=== PATIENT | female | born 1970 | race Caucasian/White ===

== ENCOUNTER 2017-09-02 11:41 | Emergency (ER) | payer SELFPAY ==
[~2017-09-02] VITALS: Ht 160 cm; Wt 78.7 kg
[2017-09-02] MEDS ORDERED: PROMETHAZINE IM 25 MG/ML VIAL IM ONE ×2 (12:00→13:30)
[2017-09-02] MEDS ORDERED: LORazepam 2 MG/ML VIAL IV ONE (12:00)
[2017-09-02] MEDS ORDERED: methylPREDNISolone SOD SUCC PF 125 MG/2 ML VIAL. IV ONE (12:00)
[2017-09-02] MEDS ORDERED: IV NORMAL SALINE 1,000ML 1,000 ML IV ONE (12:00)
--- NOTE | 2017-09-02 12:02 | PHYS DOC ---
Adult General Chief Complaint Chief Complaint: SHORTNESS OF BREATH HPI HPI Patient is a 47 YO F WITH HX OF LUPUS FIBROMYALGIA REPROTED PE BACK IN FEBRUARY 2017 ON PLAQUENIL LYRICA LEFLUNOMIDE HX OF ANXIETY P/W MULTIPLE SYMPTOMS B/L HAND AND LEG TINGLING, SOB described as feeling like her heart is really pounding palpitation she says that she is quite anxious but she states seems to get more short of breath when she exerts herself. She said she was worried that her PE came back because he shortness of breath was much worse tonight's ago today she is just having increased symptoms really feeling her heart pounding she knows that she is anxious but she is also having some chest tightness as well. Addition she has had 4 episodes of vomiting mostly small amount feeling very nauseous and addition she is having significant numbness of lower extremities and hands as well. She says last time she had the spectrum of symptoms really was just a lupus flare. She said that, without myself or nursing staff helping her at all she said "last time I got 125 of Solu-Medrol AND 50 of Phenergan". pt has had prior thoughts of suciide but no active plan at this time. Review of Systems Review of Systems Constitutional: Patient states that she gets a fever every single night at 9: 30. That has not changed recently Eyes: Denies change in visual acuity, redness, or eye pain [] HENT: Denies nasal congestion or sore throat [] Respiratory: pos sob Cardiovascular: No additional information not addressed in HPI [] GI: Denies abdominal pain, : Denies dysuria or hematuria [] All other systems were reviewed and found to be within normal limits, except as documented in this note. Physical Exam Physical Exam Constitutional: Well developed, well nourished, no acute distress, non-toxic appearance. [] HENT: Normocephalic, atraumatic, bilateral external ears normal, oropharynx moist, no oral exudates, nose normal. [] Eyes: PERRLA, EOMI, conjunctiva normal, no discharge. [] Neck: Normal range of motion, no tenderness, supple, no stridor. [] Cardiovascular:Heart rate regular rhythm, no murmur [] Lungs & Thorax: Bilateral breath sounds clear to auscultation [] Abdomen: Bowel sounds normal, soft, no tenderness, no masses, no pulsatile masses. [] Skin: Warm, dry, no erythema, no rash. [] Back: No tenderness, no CVA tenderness. [] Extremities: No tenderness, no cyanosis, no clubbing, ROM intact, no edema. [] Neurologic: Alert and oriented X 3, normal motor function, DECREASED DISTAL sensory function, no focal deficits noted. [] Psychologic: Affect normal, judgement normal, mood DEPRESSED. EKG EKG EKG shows a normal sinus rhythm with a rate of 83 there is a right bundle branch block pattern no ischemia no ST elevation.[] Radiology/Procedures Radiology/Procedures [] Impressions: Chest x-ray was negative acute Course & Med Decision Making Course & Med Decision Making Pertinent Labs and Imaging studies reviewed. (See chart for details) []47-year-old female with history of anxiety lupus and fibromyalgia who is presenting with multiple spectrum of symptoms to include palpitations shortness of breath extremity numbness overall clinical picture is that of significant anxiety however she does have a history of pulmonary embolism in the past. will get basic labs, treat symptoms ativan solumedrol and phenergan and go from [facility]. get ddimer ekg/trop, cxr, labs and ressess Final ER assessment and plan ER workup was essentially negative no signs of pneumonia d-dimer was negative troponin was negative patient had persistent nausea despite multiple doses of antiemetics She did appear more comfortable however she was no longer hyperventilating she did appear to be resting comfortably on my reassessment. She does have a long- standing history of depression she did report to staff and myself depressions at least since last October when she had to stop working she says that due to her pain and disability she temp sometimes wishes she was not alive however she does not have a specific plan about committing suicide. She is able to contract for safety with me she says if she goes home she will be safe. She is at bedside with mother and father live with her and mother is with her 24 7 and can vouch for her safety plan as well. She was advised to come back anytime should she ever feel suicidal actively ATIVAN, phenergan for symptoms Because she says she feels like the symptoms have been similar to lupus flare in the past and she usually responds well to prednisone we have agreed on a prednisone burst for the next several days patient has follow-up with her silo painter next Tuesday. Dragon Disclaimer Dragon Disclaimer This electronic medical record was generated, in whole or in part, using a voice recognition dictation system. Departure Departure: Impression: Primary Impression: Anxiety Disposition: HOME, SELF-CARE Condition: STABLE Referrals: PCP,UNKNOWN (PCP) Scripts Prednisone (PREDNISONE) 20 Mg Tablet 20 MG PO UD, #11 TAB TWO TABS PO DAILY FOR THREE DAYS, THEN ONE TAB PO DAILY FOR THREE DAYS THEN ONE HALF TAB PO DAILY FOR THREE DAYS. Prov: MANOJ ELAINE MD 09/02/17 Lorazepam (ATIVAN) 1 Mg Tablet 1 MG PO TID PRN for ANXIETY / AGITATION, #15 TAB Prov: MANOJ ELAINE MD 09/02/17 Promethazine Hcl (PROMETHAZINE HCL) 50 Mg Tablet 50 MG PO TID PRN for VOMITING, #20 TAB Prov: MANOJ ELAINE MD 09/02/17 MANOJ ELAINE MD Sep 02, 2017 12:01
[2017-09-02 12:24] LABS: BASO # 0.1 x10^3/uL (0.0-0.2); BASO % 1 % (0-3); EOS # 0.1 x10^3/uL (0.0-0.7); EOS % 2 % (0-3); HEMATOCRIT 44.1 % (36.0-47.0); HEMOGLOBIN 15.1 g/dL (12.0-15.5); LYMPH # 2.4 x10^3/uL (1.0-4.8); LYMPH % 33 % (24-48); MEAN CORPUSCULAR HEMOGLOBIN 30 pg (25-35); MEAN CORPUSCULAR HGB CONC 34 g/dL (31-37); MEAN CORPUSCULAR VOLUME 86 fL (79-100); MONO # 0.5 x10^3/uL (0.0-1.1); MONO % 8 % (0-9); NEUT # 4.1 x10^3uL (1.8-7.7); NEUT % 56 % (31-73); PLATELET COUNT 143 x10^3/uL (140-400); RED BLOOD COUNT 5.14 x10^6/uL (3.50-5.40); RED CELL DISTRIBUTION WIDTH 13.4 % (11.5-14.5); WHITE BLOOD COUNT 7.2 x10^3/uL (4.0-11.0)
[2017-09-02 12:38] LABS: ALBUMIN 3.5 g/dL (3.4-5.0); CALCIUM 8.5 mg/dL (8.5-10.1); CREATININE 0.9 mg/dL (0.6-1.0); GFR 67.1; MAGNESIUM 2.2 mg/dL (1.8-2.4); POTASSIUM 3.8 mmol/L (3.5-5.1); TOTAL BILIRUBIN 0.3 mg/dL (0.2-1.0); TOTAL PROTEIN 7.1 g/dL (6.4-8.2)
--- NOTE | 2017-09-02 13:09 | RAD ---
AP chest, 09/02/2017: HISTORY: Shortness of breath with fever The heart size and pulmonary vascularity are normal. No pulmonary infiltrate is seen. There is no evidence of pleural fluid. IMPRESSION: No acute cardiopulmonary abnormality is detected. Electronically signed by: Bar Noyola MD (09/02/2017 1:06 PM) [facility]
[2017-09-02 14:51] LABS: BILIRUBIN,URINE NEG (NEG); CLARITY,URINE CLEAR; COLOR,URINE YELLOW; GLUCOSE,URINE NEG (NEG)
[2017-09-02 14:52] LABS: BACTERIA,URINE 0 /HPF (0-FEW); NITRITE,URINE NEG (NEG); RBC,URINE 0 /HPF (0-2); SQUAMOUS EPITHELIAL CELL,UR MOD /LPF; UROBILINOGEN,URINE 0.2 mg/dL (0.2 mg/dL)
[2017-09-02] MEDS ORDERED: PROM50TA4 PO (15:05)
[2017-09-02] MEDS ORDERED: PRED20TA PO (15:05)
[2017-09-02] MEDS ORDERED: LORA-254 PO (15:05)
[2017-09-02 15:28] VITALS: BP 141/82
--- NOTE | 2017-09-02 16:19 | EKG ---
[address] [address] Test Date: 2017-09-02 Test Time: 12:00:21 Pat Name: ODALYS STARKEY Department: Room: Gender: F Wardrobe Supervisor: SABAS : 1970 Requested By: MANOJ ELAINE Order Number: [id number] Reading MD: Measurements Intervals [place] Rate: 83 P: 34 AK: 140 QRS: -17 QRSD: 84 T: 48 QT: 378 QTc: 445 Interpretive Statements SINUS RHYTHM LEFTWARD AXIS INCOMPLETE RIGHT BUNDLE BRANCH BLOCK NO SPECIFIC ECG ABNORMALITIES RI6.01 No previous ECG available for comparison
== END 2017-09-02 15:28 | disposition home or self-care (01) ==
LOC: ER 11:41
DX: F41.9 Anxiety disorder, unspecified (principal); R11.2 Nausea with vomiting, unspecified; M79.7 Fibromyalgia; F32.9 Major depressive disorder, single episode, unspecified; Z86.711 Personal history of pulmonary embolism
CPT/HCPCS: 36415; 71045; 80053; 81001; 83690; 83735; 84484; 84702; 85025; 85379; 87086; 93005; 96361; 96372; 96374; 96375; 99285; J2060; J2550; J2930; J7030

== ENCOUNTER 2018-03-09 21:05 | Inpatient (IN) | payer SELFPAY ==
[~2018-03-09] VITALS: Ht 160 cm; Wt 81.6 kg
[~2018-03-09 21:05] MED LIST: LORA-254 PO; PRED20TA PO; PROM50TA4 PO
--- NOTE | 2018-03-09 21:07 | ED.ADGEN ---
Past History Past Medical History: Anxiety, Fibromyalgia, Migraines, Other Past Surgical History: Appendectomy, Cholecystectomy, Hysterectomy, Oophorectomy Alcohol Use: Rarely Drug Use: None Adult General Chief Complaint Chief Complaint ".. My stomach is hurting the last two days....".. "I just moved back into the area.. about a month ago... "I be been having this chronic diarrhea...". " I am to see a GI specialist... ".. I do have Lupus and have been on 10 mg Prednisone daily to control it...".. 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 Patient has known history history of Lupus, anxiety, fibromyalgia, migraines, GERD and irritable bowel syndrome. Patient reports has been a number years since her last colonoscopy. Patient has had recent increase volume and frequency of stools past month. Reportedly has had a negative C. difficile check. Patient rises her abdomen pain primary in right upper quadrant tonight. This location of pain has been increasing in the last 2 days. Nothing she does seems to help. Patient denies any recent travel, specific ill contacts or bad food. Patient reports immunosuppression secondary to lupus and steroid use. Review of Systems Review of Systems Constitutional: Hx of fever or chills [] Eyes: Denies change in visual acuity, redness, or eye pain [] HENT: Denies nasal congestion or sore throat [] Respiratory: Denies cough or shortness of breath [] Cardiovascular: No additional information not addressed in HPI [] GI: Complaints of abdominal pain, nausea, and persistent diarrhea. . Denies vomiting, . : Denies dysuria or hematuria [] Musculoskeletal: Denies back pain or joint pain [] Integument: Denies rash or skin lesions [] Neurologic: Denies headache, focal weakness or sensory changes [] Endocrine: Denies polyuria or polydipsia [] All other systems were reviewed and found to be within normal limits, except as documented in this note. Family History Family History Noncontributory Current Medications Current Medications Current Medications Medications (Trade) Dose Ordered Sig/Nick Start Time Stop Time Status Last Admin Dose Admin Diphenhydramine HCl (Benadryl) 50 mg 1X ONCE 03/10/18 00:45 03/10/18 00:46 DC 03/10/18 01:29 50 MG Famotidine (Pepcid Vial) 20 mg 1X ONCE 03/09/18 22:00 03/09/18 22:01 DC 03/09/18 22:03 20 MG Info (Do NOT chart on this entry -- for MONITORING) 1 each PRN DAILY PRN 03/10/18 01:00 03/12/18 00:59 Iohexol (Omnipaque 240 Mg/ml) 30 ml 1X ONCE 03/10/18 01:00 03/10/18 01:01 DC 03/10/18 02:27 30 ML Iohexol (Omnipaque 300 Mg/ml) 75 ml 1X ONCE 03/10/18 00:45 03/10/18 00:48 DC 03/10/18 02:27 75 ML Lactated Ringer's 1,000 ml @ 1,000 mls/hr Q1H 03/09/18 21:28 03/09/18 22:27 DC 03/09/18 22:03 1,000 MLS/HR Morphine Sulfate (Morphine 10mg Syringe) 10 mg 1X ONCE 03/10/18 01:30 03/10/18 01:31 DC 03/10/18 01:30 10 MG Ondansetron HCl (Zofran) 8 mg 1X ONCE 03/10/18 03:00 03/10/18 03:01 DC 03/10/18 02:55 8 MG Allergies Allergies Allergies Coded Allergies Type Severity Reaction Last Updated Verified hydrocodone Allergy Intermediate Unknown 03/09/18 Yes varicella virus vaccine live Allergy Intermediate Unknown 03/09/18 Yes Penicillins Allergy Unknown 09/02/17 Yes Sulfa (Sulfonamide Antibiotics) Allergy Unknown 09/02/17 Yes Physical Exam Physical Exam Constitutional: Moderately to markedly acute distress, non-toxic appearance. [] HENT: Normocephalic, atraumatic, bilateral external ears normal, oropharynx moist, no oral exudates, nose normal. [] Eyes: PERRLA, EOMI, conjunctiva normal, no discharge. [] Neck: Normal range of motion, no tenderness, supple, no stridor. [] Cardiovascular:Heart rate regular rhythm, no murmur [] Lungs & Thorax: Bilateral breath sounds equal apex auscultation [] Abdomen: Bowel sounds hyperactive, soft, generalized tenderness, no masses, no pulsatile masses. [] Right upper quadrant localization on pain on rebound. No true psoas sign. Old surgery scars. Obese Skin: Warm, dry, no erythema, no rash. [] Back: No tenderness, no CVA tenderness. [] Extremities: No tenderness, no cyanosis, no clubbing, ROM intact, no edema. [] Neurologic: Alert and oriented X 3, normal motor function, normal sensory function, no focal deficits noted. [] Psychologic: Affect anxious, judgement normal, mood normal. [] Current Patient Data Vital Signs Vital Signs Date Time Temp Pulse Resp B/P (MAP) Pulse Ox O2 Delivery O2 Flow Rate FiO2 03/10/18 03:05 84 18 134/82 (99) 95 Room Air 03/09/18 21:05 98.0 Lab Results Laboratory Tests Test 03/09/18 21:35 03/09/18 22:55 White Blood Count 6.6 x10^3/uL (4.0-11.0) Red Blood Count 5.13 x10^6/uL (3.50-5.40) Hemoglobin 14.3 g/dL (12.0-15.5) Hematocrit 43.6 % (36.0-47.0) Mean Corpuscular Volume 85 fL (79-100) Mean Corpuscular Hemoglobin 28 pg (25-35) Mean Corpuscular Hemoglobin Concent 33 g/dL (31-37) Red Cell Distribution Width 13.7 % (11.5-14.5) Platelet Count 130 x10^3/uL (140-400) L Neutrophils (%) (Auto) 76 % (31-73) H Lymphocytes (%) (Auto) 17 % (24-48) L Monocytes (%) (Auto) 5 % (0-9) Eosinophils (%) (Auto) 1 % (0-3) Basophils (%) (Auto) 1 % (0-3) Neutrophils # (Auto) 5.0 x10^3uL (1.8-7.7) Lymphocytes # (Auto) 1.1 x10^3/uL (1.0-4.8) Monocytes # (Auto) 0.3 x10^3/uL (0.0-1.1) Eosinophils # (Auto) 0.1 x10^3/uL (0.0-0.7) Basophils # (Auto) 0.0 x10^3/uL (0.0-0.2) Erythrocyte Sedimentation Rate 8 (0-25) Prothrombin Time 9.7 SEC (9.4-11.4) Prothrombin Time INR 1.0 (0.9-1.1) PTT 25 SEC (23-33) Sodium Level 141 mmol/L (136-145) Potassium Level 3.4 mmol/L (3.5-5.1) L Chloride Level 106 mmol/L (98-107) Carbon Dioxide Level 24 mmol/L (21-32) Anion Gap 11 (6-14) Blood Urea Nitrogen 9 mg/dL (7-20) Creatinine 1.0 mg/dL (0.6-1.0) Estimated GFR (Cockcroft-Gault) 59.4 Glucose Level 140 mg/dL (70-99) H Calcium Level 8.4 mg/dL (8.5-10.1) L Total Bilirubin 0.4 mg/dL (0.2-1.0) Direct Bilirubin 0.1 mg/dL (0.0-0.2) Aspartate Amino Transferase (AST) 24 U/L (15-37) Alanine Aminotransferase (ALT) 34 U/L (14-59) Alkaline Phosphatase 146 U/L (46-116) H Creatine Kinase 34 U/L (26-192) Troponin I Quantitative < 0.017 ng/mL (0-0.055) Total Protein 6.9 g/dL (6.4-8.2) Albumin 3.4 g/dL (3.4-5.0) Lipase 168 U/L (73-393) Urine Collection Type Unknown Urine Color Yellow Urine Clarity Clear Urine pH 7.0 Urine Specific [place] 1.010 Urine Protein Neg (NEG-TRACE) Urine Glucose (UA) Neg mg/dL (NEG) Urine Ketones (Stick) Neg mg/dL (NEG) Urine Blood Neg (NEG) Urine Nitrite Neg (NEG) Urine Bilirubin Neg (NEG) Urine Urobilinogen Dipstick 0.2 mg/dL (0.2 mg/dL) Urine Leukocyte Esterase Neg (NEG) Urine RBC 0 /HPF (0-2) Urine WBC Occ /HPF (0-4) Urine Squamous Epithelial Cells Occ /LPF Urine Bacteria 0 /HPF (0-FEW) Urine Opiates Screen Neg (NEG) Urine Methadone Screen Neg (NEG) Urine Barbiturates Neg (NEG) Urine Phencyclidine Screen Neg (NEG) Urine Amphetamine/Methamphetamine Neg (NEG) Urine Benzodiazepines Screen Neg (NEG) Urine Cocaine Screen Neg (NEG) Urine Cannabinoids Screen Neg (NEG) Urine Ethyl Alcohol Neg (NEG) EKG EKG My interpretation EKG shows a sinus rhythm at 82 bpm. Some mild leftward axis and some nonspecific T-wave changes. But no findings acute STEMI with contralateral changes[] Radiology/Procedures Radiology/Procedures [] Impressions: I interpretation of acute abdomen film shows no acute cardiopulmonary findings on pulmonary portion of film. No free air in the diaphragm. Appears to have gas throughout the colon. Does have clips in right upper quadrant of abdomen film. Nonobstructive bowel gas pattern. CT of abd. shows. Colon wall thickening and multiple splenic small lesions. No free air appreciated. See formal report when available Course & Med Decision Making Course & Med Decision Making Pertinent Labs and Imaging studies reviewed. (See chart for details) Discussed options of treatment with patient patient requesting to be admitted here- initially patient aware that we do not offer GI services or consult for hospital admissions at this location. Patient also where we no longer do surgery at this location. Patient insists on admission here. Discussed presentation, testing and treatment plan with . Will admit for IV hydration and NPO status. Will start Antibiotics and give Solumedrol- due to hx of chronic steroid use and Lupus hx. [] Final Impression Final Impression 1. Abdomen Pain[] 2. Colitis 3. Lupus steroid dependent 4. History GERD 5. History of anxiety 6. History of fibromyalgia 7. History of chronic diarrhea Dragon Disclaimer Dragon Disclaimer This electronic medical record was generated, in whole or in part, using a voice recognition dictation system. SATINDER LIU MD Mar 09, 2018 21:07
[2018-03-09] MEDS ORDERED: IV RINGERS SOLUTION,LACTATED 1,000 ML IV SCH (21:28)
[2018-03-09 21:50] LABS: BASO % 1 % (0-3); EOS # 0.1 x10^3/uL (0.0-0.7); EOS % 1 % (0-3); HEMATOCRIT 43.6 % (36.0-47.0); HEMOGLOBIN 14.3 g/dL (12.0-15.5); LYMPH # 1.1 x10^3/uL (1.0-4.8); LYMPH % 17 % (24-48); MEAN CORPUSCULAR HEMOGLOBIN 28 pg (25-35); MEAN CORPUSCULAR HGB CONC 33 g/dL (31-37); MEAN CORPUSCULAR VOLUME 85 fL (79-100); MONO # 0.3 x10^3/uL (0.0-1.1); MONO % 5 % (0-9); NEUT % 76 % (31-73); PLATELET COUNT 130 x10^3/uL (140-400); RED BLOOD COUNT 5.13 x10^6/uL (3.50-5.40); RED CELL DISTRIBUTION WIDTH 13.7 % (11.5-14.5); WHITE BLOOD COUNT 6.6 x10^3/uL (4.0-11.0)
[2018-03-09] MEDS ORDERED: FAMOTIDINE 20 MG/2 ML VIAL IVP ONE (22:00)
[2018-03-09] MEDS ORDERED: ONDANSETRON PF 4 MG/2 ML VIAL. IV ONE (22:00)
[2018-03-09 22:06] LABS: ALBUMIN 3.4 g/dL (3.4-5.0); CALCIUM 8.4 mg/dL (8.5-10.1); DIRECT BILIRUBIN 0.1 mg/dL (0.0-0.2); GFR 59.4; POTASSIUM 3.4 mmol/L (3.5-5.1); TOTAL BILIRUBIN 0.4 mg/dL (0.2-1.0); TOTAL PROTEIN 6.9 g/dL (6.4-8.2)
--- NOTE | 2018-03-09 22:08 | RAD ---
ACUTE ABDOMEN SERIES History: Severe right sided abdomen pain, nausea, vomiting, diarrhea, fever Comparison: September 02, 2017 chest radiograph Findings: Single view of the chest and single supine and upright views of the abdomen are submitted. There is no infiltrate, pleural fluid, pneumothorax. There is no free air. There is a nonobstructive bowel gas pattern. There are likely phleboliths right pelvis. There has been cholecystectomy. Impression: 1. No acute abnormality is identified by radiographs. Electronically signed by: Keo Bledsoe MD (03/09/2018 10:04 PM) [facility]
[2018-03-09] MEDS ORDERED: MORPHINE SULFATE 10 MG/ML SYRINGE. SQ ONE (23:15)
[2018-03-09 23:21] LABS: BARBITURATES NEG (NEG); BENZODIAZEPINES NEG (NEG); CANNABINOIDS NEG (NEG); COCAINE NEG (NEG); METHADONE NEG (NEG); OPIATES NEG (NEG); PHENCYCLIDINE NEG (NEG)
[2018-03-09 23:22] LABS: BILIRUBIN,URINE NEG (NEG); CLARITY,URINE CLEAR; COLOR,URINE YELLOW; GLUCOSE,URINE NEG (NEG); NITRITE,URINE NEG (NEG); UROBILINOGEN,URINE 0.2 mg/dL (0.2 mg/dL)
[2018-03-09 23:23] LABS: AMPHETAMINE/METHAMPHETAMINE NEG (NEG); BACTERIA,URINE 0 /HPF (0-FEW); RBC,URINE 0 /HPF (0-2); SQUAMOUS EPITHELIAL CELL,UR OCC /LPF; WBC,URINE OCC /HPF (0-4)
[2018-03-10] MEDS ORDERED: IOHEXOL 300 MG/ML 75 ML VIAL. IV ONE (00:45)
[2018-03-10] MEDS ORDERED: diphenhydrAMINE 50 MG/ML VIAL IVP ONE ×2 (00:45→17:45)
[2018-03-10] MEDS ORDERED: CONTRAST GIVEN MC PRN (01:00)
[2018-03-10] MEDS ORDERED: IOHEXOL 240 MG/ML 50ML VIAL. PO ONE (01:00)
[2018-03-10] MEDS ORDERED: MORPHINE SULFATE 10 MG/ML SYRINGE. SQ ONE (01:30)
[2018-03-10] MEDS ORDERED: ONDANSETRON PF 4 MG/2 ML VIAL. IV ONE (03:00)
--- NOTE | 2018-03-10 03:32 | RAD ---
Examination: CT ABD PELV W/ORAL IV CONTRAST History: Omni 300 75cc: Abdomen pain, nausea, vomiting, fever x 2 days. Hx: Appendectomy, hysterectomy, cholecystectomy, oopherectomy Comparison/Correlation: None Findings: Axial images of the abdomen and pelvis were obtained following 72 cc Isovue 300 IV. Oral contrast was administered. Sagittal and coronal reformatted images were provided. Visualized lung bases are unremarkable. Cholecystectomy noted. Minimal central biliary prominence is evident presumably related to postoperative status. Adrenal glands are normal. Pancreas is unremarkable. Right renal interpolar region low-attenuation lesion which is too small to characterize probably represents a cyst. Left kidney is unremarkable. The spleen has multiple low-attenuation lesions within it. One of these at the splenic dome has central calcification. This lesion measures up to 3 cm in the axial plane. More inferiorly at the medial aspect of the spleen, there is a lesion which measures up to 2.6 cm diameter. At the inferior aspect of the spleen, there is a well-demarcated lobulated lesion measuring up to 4.7 cm x 4.4 cm. It is of fluid attenuation. Additional multiple smaller lesions are present within the spleen with similar density. No enlarged abdominal or pelvic lymph nodes. No bowel obstruction or extraluminal gas. Hysterectomy noted. Circumferential wall thickening of the proximal hemicolon is present. This may present to a lesser extent at the distal hemicolon. No surrounding stranding. Lucency involving the proximal right femur is present. Correlate with previous intervention. Impression: Subtle wall thickening of the colon. Findings raise question of mild colitis. No surrounding stranding. Multiple lesions involving the spleen. These probably represent hemangiomas. No enlarged lymph nodes. Correlate with previous exams assess stability. Consider further evaluation with MRI of the spleen without and with contrast for more complete characterization if stability of these findings are known. Electronically signed by: Blayne Dominguez MD (03/10/2018 3:28 AM) [facility]
[2018-03-10] MEDS ORDERED: ACETAMINOPHEN 325 MG TABLET PO PRN (04:30)
[2018-03-10] MEDS ORDERED: cefTRIAXone IV Push 1 GM VIAL. IVP ONE (05:00)
[2018-03-10] MEDS ORDERED: methylPREDNISolone SOD SUCC PF 125 MG/2 ML VIAL. IV ONE (05:00)
[2018-03-10] MEDS ORDERED: ONDANSETRON PF 4 MG/2 ML VIAL. IV PRN (05:00)
[2018-03-10 06:00] VITALS: BP 131/86
[2018-03-10] MEDS ORDERED: ESTR2TAB PO (06:27)
[2018-03-10] MEDS ORDERED: NAPR220T70 PO (06:27)
[2018-03-10] MEDS ORDERED: SUCR1TAB35 PO (06:27)
[2018-03-10] MEDS ORDERED: TOPI100T42 PO (06:27)
[2018-03-10] MEDS ORDERED: LEFL20TA15 PO (06:27)
[2018-03-10] MEDS ORDERED: BUSP15TA PO (06:27)
[2018-03-10] MEDS ORDERED: FLUO40CA2 PO (06:27)
[2018-03-10] MEDS ORDERED: PRED-220 PO (06:27)
[2018-03-10] MEDS ORDERED: HYDR200T71 PO (06:27)
[2018-03-10] MEDS ORDERED: OMEP40CA5 PO (06:27)
[2018-03-10] MEDS ORDERED: NAPROXEN 250 MG TABLET PO PRN (06:45)
[2018-03-10] MEDS: PROMETHAZINE 25 MG TABLET. PO PRN ×2 (07:15→20:40)
[2018-03-10] MEDS: SUCRALFATE 1 GM TABLET. PO SCH ×4 (08:07→20:26)
[2018-03-10] MEDS: POTASSIUM CL 40MEQ D5-0.45NACL 1,000 ML IV SCH ×2 (08:07→22:04)
[2018-03-10] MEDS: PANTOPRAZOLE 40 MG TABLET. PO SCH (08:07)
[2018-03-10] MEDS: busPIRone 15 MG TABLET. PO SCH ×2 (10:03→20:25)
[2018-03-10] MEDS: FLUoxetine HCL 20 MG CAPSULE PO SCH (10:03)
[2018-03-10] MEDS: ESTRADIOL 1 MG TABLET PO SCH (10:03)
[2018-03-10] MEDS: TOPIRAMATE 100 MG TABLET. PO SCH ×2 (10:03→20:26)
[2018-03-10] MEDS: HYDROXYCHLOROQUINE 200 MG TABLET PO SCH ×2 (10:04→20:25)
[2018-03-10 10:49] VITALS: BP 128/87
[2018-03-10] MEDS: HYDROmorphone PF 2 MG/ML VIAL IV PRN ×3 (12:41→20:41)
--- NOTE | 2018-03-10 14:04 | HP ---
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 She stated that her symptoms started since December with loose bowel movement. Normally, she has irritable bowel syndrome and her bowel sounds fluctuate between diarrhea and constipation. However, her symptoms has persistent diarrhea since December. For the last 2 days, the pain in the right upper quadrant has worsened associated with nausea and vomiting. She stated that she has also had fevers every night, severe cramping and urgency. She also described feeling dizzy, lightheaded, and in pain in every position involving all her muscles and joints. She has been unable to eat, tried different types of food without much success and stated that recently her intake has dramatically decreased and that setting that has helped her diarrhea. She saw her primary care physician, who referred her to a hearing aid technician at [place], but the pain has worsened over the last 2 days and she ended up in the Emergency Room of [facility]. She denied any ill contact. Denied any travel abroad. She lives within the [facility] and she drinks [employer] water and apparently none of her parents have similar symptoms. She was extensively investigated in the Emergency Room. Her lab works were generally unremarkable. Her lab works are mostly unremarkable. Her potassium was slightly low. Her alkaline phosphatase slightly elevated, but otherwise they seem to be all within acceptable range. Her urinalysis was essentially unremarkable. Toxic screen also was negative. She did have a CT scan of the abdomen and pelvis with IV contrast, which showed that the patient has the visualized lung bases are unremarkable. She has cholecystectomy noted. Minimal central biliary prominence is evident, presumably related to postoperative status. Adrenal glands are normal. Pancreas is unremarkable. Right renal interpolar region low attenuation lesion, which is too small to characterize probably represents a cyst, left kidney is unremarkable. The spleen has multiple low attenuation lesions. No enlarged abdominal or pelvic lymph nodes. No bowel obstruction or extraluminal gas. Hysterectomy was noted. The patient has circumferential wall thickening of the proximal all-colon is present. This may represent lesser extent at the distal all-colon with surrounding stranding. She has lucencies involving the proximal right femur is present. IMPRESSION: The patient has subtle wall thickening of the colon finding raise question of mild colitis. There is no surrounding stranding. Multiple lesions involving the spleen may represent hemangiomas. No enlarged lymph nodes. The radiologist recommended further evaluation with MRI of the spleen without and with contrast for more complete characterization with stability of these lesions are known. The patient was admitted and was started on IV fluid as well as IV Rocephin and Zithromax together with all other medication and pain management for possible infectious colitis. Her stool was sent for culture. I will add the stool for ova cysts and parasites. I will continue with this current treatment. ANASTACIO PEARSON MD DR: NICKO/andrew JOB#: [id number] / [id number]
[2018-03-10] MEDS: diphenhydrAMINE HCL 25 MG CAPSULE PO PRN (14:09)
[2018-03-10 14:58] VITALS: BP 125/89
[2018-03-10 20:25] VITALS: BP 136/88
[2018-03-10] MEDS: LACTOBACILLUS RHAMNOSUS GG 1 CAPSULE. PO SCH (20:26)
[2018-03-10] MEDS: hydrOXYzine HCL 25 MG TABLET PO PRN (22:05)
[2018-03-10 23:00] VITALS: BP 124/85
--- NOTE | 2018-03-10 23:03 | EKG ---
[address] [address] Test Date: 2018-03-09 Test Time: 22:33:29 Pat Name: ODALYS STARKEY Department: Room: 115 A Gender: F Hamper Maker: : 1970 Requested By: SATINDER LIU Order Number: [id number] Reading MD: Matthew Farnsworth Measurements Intervals [place] Rate: 82 P: 31 FL: 150 QRS: -17 QRSD: 88 T: 71 QT: 376 QTc: 442 Interpretive Statements SINUS RHYTHM LEFTWARD AXIS T ABNORMALITY IN HIGH LATERAL LEADS Electronically Signed On 03-14-2018 10:26:24 EDGE TRIMMING MACHINE OPERATOR by Matthew Farnsworth
[2018-03-11] MEDS: HYDROmorphone PF 2 MG/ML VIAL IV PRN ×4 (01:25→10:51)
[2018-03-11 05:56] VITALS: BP 117/82
[2018-03-11] MEDS: diphenhydrAMINE HCL 25 MG CAPSULE PO PRN ×2 (06:29→11:15)
[2018-03-11 07:41] LABS: ALBUMIN 3.3 g/dL (3.4-5.0); CALCIUM 8.1 mg/dL (8.5-10.1); GFR 59.4; POTASSIUM 3.3 mmol/L (3.5-5.1); TOTAL BILIRUBIN 0.4 mg/dL (0.2-1.0); TOTAL PROTEIN 6.7 g/dL (6.4-8.2)
[2018-03-11] MEDS: SUCRALFATE 1 GM TABLET. PO SCH ×2 (07:43→10:54)
[2018-03-11] MEDS: hydrOXYzine HCL 25 MG TABLET PO PRN (07:46)
[2018-03-11 07:54] LABS: BASO % 1 % (0-3); EOS # 0.1 x10^3/uL (0.0-0.7); EOS % 1 % (0-3); HEMATOCRIT 40.6 % (36.0-47.0); HEMOGLOBIN 13.2 g/dL (12.0-15.5); LYMPH # 2.1 x10^3/uL (1.0-4.8); LYMPH % 23 % (24-48); MEAN CORPUSCULAR HEMOGLOBIN 28 pg (25-35); MEAN CORPUSCULAR HGB CONC 33 g/dL (31-37); MEAN CORPUSCULAR VOLUME 87 fL (79-100); MONO # 0.8 x10^3/uL (0.0-1.1); MONO % 8 % (0-9); NEUT # 6.3 x10^3uL (1.8-7.7); NEUT % 68 % (31-73); RED BLOOD COUNT 4.67 x10^6/uL (3.50-5.40); RED CELL DISTRIBUTION WIDTH 14.1 % (11.5-14.5); WHITE BLOOD COUNT 9.2 x10^3/uL (4.0-11.0)
[2018-03-11 08:33] LABS: PLATELET CLUMP PRESENT; PLT ESTIMATE DECREASED (ADEQUATE)
[2018-03-11] MEDS ORDERED: LEFLUNOMIDE PO SCH (09:00)
[2018-03-11] MEDS ORDERED: methylPREDNISolone SOD SUCC PF 125 MG/2 ML VIAL. IV SCH (09:00)
[2018-03-11] MEDS: FLUoxetine HCL 20 MG CAPSULE PO SCH (09:01)
[2018-03-11] MEDS: LACTOBACILLUS RHAMNOSUS GG 1 CAPSULE. PO SCH (09:01)
[2018-03-11] MEDS: PANTOPRAZOLE 40 MG TABLET. PO SCH (09:01)
[2018-03-11] MEDS: ESTRADIOL 1 MG TABLET PO SCH (09:01)
[2018-03-11] MEDS: TOPIRAMATE 100 MG TABLET. PO SCH (09:01)
[2018-03-11] MEDS: HYDROXYCHLOROQUINE 200 MG TABLET PO SCH (09:02)
[2018-03-11] MEDS: busPIRone 15 MG TABLET. PO SCH (10:54)
[2018-03-11 11:05] VITALS: BP_SYST 117; BP_SYST 146; BP_DIAS 75; BP_DIAS 95
[2018-03-11] MEDS: PROMETHAZINE 25 MG TABLET. PO PRN (12:01)
--- NOTE | 2018-03-11 12:03 | DS ---
DATE OF DISCHARGE: 03/11/2018 HOSPITAL COURSE: The patient is a 47-year-old female patient who was admitted through the Emergency Room complaining of abdominal pain, mostly in the right upper quadrant. She stated that her symptoms started since December with loose bowel movements. Normally, she has irritable bowel syndrome and she fluctuates between diarrhea and constipation; however, she started having persistent diarrhea since December. For the last 2 days prior to admission, her pain in the right upper quadrant has worsened with associated nausea and vomiting. She stated that she has had fevers every night, severe cramping and urgency. She also describes feeling dizzy, lightheaded, and rib pain in every position involving all her muscles and joints. She has been unable to eat, tried different types of food without much success and stated that her intake has dramatically decreased and that obviously helped her diarrhea. She saw her primary care physician who referred her to a theatrical rigger at [facility] but the pain has worsened and therefore she ended up in the Emergency Room of [facility]. She denied any ill contact. Denied any recent travel. She [place] within the city boundary and she drinks city water and apparently none of her parents have similar symptoms. She was extensively investigated in the Emergency Room. Her lab work was generally unremarkable. Her potassium was slightly low. Her alkaline phosphatase slightly elevated. Otherwise, they seemed to be all within acceptable range. Urinalysis was essentially unremarkable. Tox screen was negative. Her CT scan of the abdomen and pelvis with IV contrast showed that the she underwent cholecystectomy. Minimal central biliary prominence is evident. She has right renal interlobar. She has circumferential wall thickening of the proximal hemicolon present. This may represent to a lesser extent the distal hemicolon with surrounding stranding. She has also lucencies involving the proximal right femur. We did start her on IV antibiotic as well in the form of Rocephin, Zithromax, Flagyl, IV Solu-Medrol, pain management. Unfortunately, she continued to complain of severe pain despite the fact that she has been receiving hydromorphone every 3 hours, although her lab work remained generally stable except her low potassium and therefore a decision was made to transfer her to [facility] to consult the Infectious Disease as well as the theatrical rigger and perhaps the dowel pin man. PHYSICAL EXAMINATION: GENERAL: When I saw her this morning, she was resting slightly propped up in bed, in no apparent respiratory distress. She was pale, but not jaundiced, cyanosed, or thyromegaly. No jugular venous distention. No limb edema. VITAL SIGNS: Her heart rate was 82, blood pressure was 117/82, temperature was 97.5, respiratory rate was 18, and oxygen saturation was 95% on room air. HEAD, EYES, EARS, NOSE AND THROAT: Showed she is normocephalic, atraumatic. NECK: Supple. HEART: Showed normal first and second heart sounds. No gallop, rub, or murmur. CHEST: Clear to auscultation. No crepitation or rhonchi. ABDOMEN: Distended, soft, marked tenderness in the right upper quadrant. There is no guarding or rigidity. No organomegaly. All hernial orifice intact. Bowel sounds normal. NEUROLOGIC: She was awake, alert, responding appropriately. All cranial nerves intact. She moves extremities without difficulty. She ambulates without assistance or assistive devices. Her intake was 2190, no output recorded. LABORATORY DATA: As of this morning, her serum sodium 140, potassium 3.3, chloride 106, bicarbonate 21, anion gap of 13, BUN 7, creatinine 1, estimated GFR was 59 mL per minute. Her glucose was 8. Calcium was 8.1. Total bilirubin, AST, ALT were normal. Alkaline phosphatase slightly elevated. Total protein was 6.7, albumin 3.3. Her white cell count was 9200, hemoglobin 13, hematocrit 40, MCV 87, and platelet count of 130,000. Her prothrombin time was 9.7, INR of 1, aPTT was 25. Urinalysis was unremarkable. Tox screen was also negative. Her blood cultures are so far negative. DISCHARGE MEDICATIONS: The patient was transferred to [facility] to continue with leflunomide, methylprednisolone 40 mg IV twice a day, ceftriaxone 1 g IV daily, lactobacillus rhamnosus 1 capsule b.i.d., hydroxyzine 25 mg every 6 hours, diphenhydramine 25 mg every 6 hours, metronidazole 500 mg IV q. 8 hourly, hydromorphone 2 mg IV every 3 hours, topiramate 100 mg twice a day, hydroxychloroquine sulfate for Plaquenil 200 mg twice a day, fluoxetine 40 mg daily, estradiol 2 mg daily. She is on buspirone 15 mg p.o. b.i.d., sucralfate 1 gram IV orally 4 times a day, Protonix 40 mg daily. She is on D5 half normal with 40 mEq of potassium chloride IV at 75 mL per minute, promethazine 50 mg every 6 hours, naproxen 250 mg daily. FINAL DISCHARGE DIAGNOSES: Right upper quadrant abdominal pain due to circumferential wall thickening of the right hemicolon. Other medical problems include systemic lupus erythematosus, fibromyalgia, generalized arthralgias and arthritis. ANASTACIO PEARSON MD DR: NICKO/andrew JOB#: [id number] / [id number]
== END 2018-03-11 12:08 | disposition short-term general hospital (02) | DRG 392 ==
LOC: ER 21:05 → 1 SOUTH 03-10 04:00
PROVIDERS: ADMIT Internal Medicine; ATTEND Internal Medicine
DX: K52.9 Noninfective gastroenteritis and colitis, unspecified (principal); K21.9 Gastro-esophageal reflux disease without esophagitis; M13.0 Polyarthritis, unspecified; M32.9 Systemic lupus erythematosus, unspecified; M79.7 Fibromyalgia; Z87.440 Personal history of urinary (tract) infections; Z90.49 Acquired absence of other specified parts of digestive tract; Z90.710 Acquired absence of both cervix and uterus; F41.9 Anxiety disorder, unspecified; G43.909 Migraine, unspecified, not intractable, without status migrainosus; Z87.81 Personal history of (healed) traumatic fracture; Z88.0 Allergy status to penicillin; Z88.2 Allergy status to sulfonamides; Z88.7 Allergy status to serum and vaccine; Z88.8 Allergy status to other drugs, medicaments and biological substances; Z90.721 Acquired absence of ovaries, unilateral
CPT/HCPCS: 36415; 74022; 74177; 80048; 80053; 80076; 80307; 81001; 82550; 82947; 83690; 84484; 85025; 85610; 85651; 85730; 87040; 93005; 96361; 96365; 96372; 96375; 96376; G0238; J0696; J1170; J1200; J2270; J2405; J2930; J3010; J3490; J7042; J7120; Q0163; Q0169; Q9966; Q9967; 99285-25

== ENCOUNTER 2018-06-18 10:28 | Emergency (ER) | payer MEDICAID ==
[~2018-06-18] VITALS: Ht 160 cm; Wt 74.8 kg
[~2018-06-18 10:28] MED LIST changes: +BUSP15TA PO; +ESTR2TAB PO; +FLUO40CA2 PO; +HYDR200T71 PO; +LEFL20TA15 PO; +NAPR220T70 PO; +OMEP40CA5 PO; +PRED-220 PO; +SUCR1TAB35 PO; +TOPI100T42 PO
[2018-06-18] MEDS ORDERED: IV NORMAL SALINE 1,000ML 1,000 ML IV ONE (10:45)
--- NOTE | 2018-06-18 10:54 | PHYS DOC ---
Past History Past Medical History: Anxiety, Fibromyalgia, Migraines, Other Past Surgical History: Appendectomy, Cholecystectomy, Hysterectomy, Oophorectomy Alcohol Use: None Drug Use: None Adult General Chief Complaint Chief Complaint: OTHER COMPLAINTS HPI HPI 48-year-old female presents with general weakness, shortness of breath, and vomiting. The patient has lupus. She was recently treated for a UTI and had to stop her lupus medications for last 1 week. The last couple days she has had a very difficult time keeping solids or fluids down because of vomiting. She now feels very weak and worn out. She states that even with minimal exertion she gets very tired. She's been unable to restart her lupus medicines because they want stay down. She is unsure if she has had a change in her fever pattern. She has a fever every evening. She denies chest pain. She has some shortness of breath with exertion. Exertion also makes her have a dry cough. She denies any falls or trauma. Review of Systems Review of Systems Constitutional: Denies fever or chills. Generalized weakness. [] Eyes: Denies change in visual acuity, redness, or eye pain [] HENT: Denies nasal congestion or sore throat [] Respiratory: Cough with shortness of breath [] Cardiovascular: No additional information not addressed in HPI [] GI: Nausea, vomiting. Denies abdominal pain, bloody stools or diarrhea [] : Denies dysuria or hematuria [] Musculoskeletal: Denies back pain or joint pain [] Integument: Denies rash or skin lesions [] Neurologic: Denies headache, focal weakness or sensory changes [] Endocrine: Denies polyuria or polydipsia [] All other systems were reviewed and found to be within normal limits, except as documented in this note. Current Medications Current Medications Current Medications Medications (Trade) Dose Ordered Sig/Nick Start Time Stop Time Status Last Admin Dose Admin Ondansetron HCl (Zofran) 4 mg 1X ONCE 06/18/18 11:00 06/18/18 11:01 Sodium Chloride 1,000 ml @ 1,000 mls/hr 1X ONCE 06/18/18 10:45 06/18/18 11:44 Allergies Allergies Allergies Coded Allergies Type Severity Reaction Last Updated Verified Penicillins Allergy Intermediate 03/10/18 Yes Sulfa (Sulfonamide Antibiotics) Allergy Intermediate 03/10/18 Yes hydrocodone Allergy Intermediate STOMACH UPSET/CONSTIPATION 03/11/18 Yes varicella virus vaccine live Allergy Intermediate Unknown 03/09/18 Yes pregabalin Allergy Unknown 06/18/18 Yes Physical Exam Physical Exam Constitutional: Well developed, well nourished, no acute distress, non-toxic appearance. [] HENT: Normocephalic, atraumatic, bilateral external ears normal, oropharynx moist, no oral exudates, nose normal. [] Eyes: PERRLA, EOMI, conjunctiva normal, no discharge. [] Neck: Normal range of motion, no tenderness, supple, no stridor. [] Cardiovascular:Heart rate regular rhythm, no murmur [] Lungs & Thorax: Bilateral breath sounds clear to auscultation [] Abdomen: Bowel sounds normal, soft, no tenderness, no masses, no pulsatile masses. [] Skin: Warm, dry, no erythema, no rash. [] Back: No tenderness, no CVA tenderness. [] Extremities: No tenderness, no cyanosis, no clubbing, ROM intact, no edema. [] Neurologic: Alert and oriented X 3, normal motor function, normal sensory function, no focal deficits noted. [] Psychologic: Affect normal, judgement normal, mood normal. [] EKG EKG Sinus rhythm, rate 87, left axis, no ST elevations or depressions. Inverted T waves V2 V3.[] Radiology/Procedures Radiology/Procedures [] Impressions: CHEST PA LATERAL History: short of breath, hx of Lupus, pt shielded Comparison: 09/02/2017 AP view of the chest. Findings: The cardiomediastinal silhouette is normal. Pulmonary vasculature is normal. The lungs are clear. No pleural effusion or pneumothorax is seen. There is no acute bone abnormality. IMPRESSION: No acute cardiopulmonary process. Right upper quadrant surgical clips are present. Electronically signed by: Blayne Sesay MD (06/18/2018 11:19 AM) [facility] DICTATED AND SIGNED BY: BLAYNE SESAY MD DATE: 06/18/18 1111 CC: СВЕТЛАНА BLOOM DO; GABI MORFIN MD Course & Med Decision Making Course & Med Decision Making Pertinent Labs and Imaging studies reviewed. (See chart for details) The patient's labs are unremarkable except for a cyst slightly low potassium at 3.1. We will give her 20 mEq by mouth. We have given her 1 L normal saline, 30 mg of Toradol IV, 125 mg of Solu-Medrol IV, and 25 mg of Phenergan PO. The patient feels like she can go home since she has family to help care for her. She understands that it will take about 24 hours for the Solu-Medrol to kick in. I will also discharge her with Phenergan suppositories in case she is unable to keep down the oral pills. She already has Phenergan at home. She is stable for discharge at this time. [] Dragon Disclaimer Dragon Disclaimer This electronic medical record was generated, in whole or in part, using a voice recognition dictation system. Departure Departure: Impression: Primary Impression: Exacerbation of systemic lupus Additional Impressions: Hypokalemia Vomiting Disposition: HOME, SELF-CARE Condition: STABLE Referrals: GABI MORFIN MD (PCP) Patient Instructions: Nausea and Vomiting, Gfrq-bi-Onsl Scripts Promethazine HCl (Phenergan) 25 Mg Supp.rect 25 MG RC Q6HRS PRN for VOMITING, #20 SUPP.RECT Prov: СВЕТЛАНА BLOOM DO 06/18/18 Problem Qualifiers Additional Impressions: Vomiting Vomiting type: unspecified Vomiting Intractability: non-intractable Nausea presence: with nausea Qualified Codes: R11.2 - Nausea with vomiting, unspecified СВЕТЛАНА BLOOM DO Jun 18, 2018 10:54
[2018-06-18] MEDS ORDERED: ONDANSETRON PF 4 MG/2 ML VIAL. IV ONE (11:00)
--- NOTE | 2018-06-18 11:22 | RAD ---
CHEST PA LATERAL History: short of breath, hx of Lupus, pt shielded Comparison: 09/02/2017 AP view of the chest. Findings: The cardiomediastinal silhouette is normal. Pulmonary vasculature is normal. The lungs are clear. No pleural effusion or pneumothorax is seen. There is no acute bone abnormality. IMPRESSION: No acute cardiopulmonary process. Right upper quadrant surgical clips are present. Electronically signed by: Blayne Dominguez MD (06/18/2018 11:19 AM) [facility]
[2018-06-18] MEDS ORDERED: methylPREDNISolone SOD SUCC PF 125 MG/2 ML VIAL. IV ONE (11:30)
[2018-06-18 11:39] LABS: BASO # 0.1 x10^3/uL (0.0-0.2); BASO % 1 % (0-3); EOS # 0.1 x10^3/uL (0.0-0.7); EOS % 2 % (0-3); HEMATOCRIT 42.7 % (36.0-47.0); HEMOGLOBIN 14.2 g/dL (12.0-15.5); LYMPH # 1.3 x10^3/uL (1.0-4.8); LYMPH % 21 % (24-48); MEAN CORPUSCULAR HEMOGLOBIN 28 pg (25-35); MEAN CORPUSCULAR HGB CONC 33 g/dL (31-37); MEAN CORPUSCULAR VOLUME 85 fL (79-100); MONO # 0.5 x10^3/uL (0.0-1.1); MONO % 9 % (0-9); NEUT % 67 % (31-73); PLATELET COUNT 131 x10^3/uL (140-400); RED BLOOD COUNT 5.04 x10^6/uL (3.50-5.40); RED CELL DISTRIBUTION WIDTH 13.8 % (11.5-14.5)
[2018-06-18 11:50] LABS: ALBUMIN 3.4 g/dL (3.4-5.0); CALCIUM 8.7 mg/dL (8.5-10.1); CREATININE 0.9 mg/dL (0.6-1.0); GFR 66.8; POTASSIUM 3.1 mmol/L (3.5-5.1); TOTAL BILIRUBIN 0.4 mg/dL (0.2-1.0); TOTAL PROTEIN 6.8 g/dL (6.4-8.2)
[2018-06-18 12:15] VITALS: BP 119/72
[2018-06-18] MEDS ORDERED: PROM25SU32 RC (12:17)
[2018-06-18] MEDS ORDERED: KETOROLAC 30 MG/ML VIAL. IV ONE (12:30)
[2018-06-18] MEDS ORDERED: PROMETHAZINE 25 MG TABLET. PO ONE (12:30)
[2018-06-18] MEDS ORDERED: POTASSIUM CHLORIDE 20 MEQ TABLET.ER. PO ONE (12:30)
--- NOTE | 2018-06-19 10:55 | EKG ---
[address] [address] Test Date: 2018-06-18 Test Time: 10:53:46 Pat Name: ODALYS STARKEY Department: Room: Gender: F Netbackup Engineer: SUSAN : 1970 Requested By: СВЕТЛАНА BLOOM Order Number: [id number] Reading MD: Tavares Rivera MD Measurements Intervals [place] Rate: 87 P: 36 [place]: 148 QRS: -30 QRSD: 92 T: 74 QT: 386 QTc: 471 Interpretive Statements SINUS RHYTHM NON-SPECIFIC ST/T CHANGES Electronically Signed On 06-19-2018 10:54:54 CDT by Tavares Rivera MD
== END 2018-06-18 12:36 | disposition home or self-care (01) ==
LOC: ER 10:28
DX: M32.9 Systemic lupus erythematosus, unspecified (principal); E87.6 Hypokalemia; R11.2 Nausea with vomiting, unspecified; F41.9 Anxiety disorder, unspecified; M79.7 Fibromyalgia; G43.909 Migraine, unspecified, not intractable, without status migrainosus; Z88.0 Allergy status to penicillin; Z88.2 Allergy status to sulfonamides; Z88.5 Allergy status to narcotic agent; Z88.7 Allergy status to serum and vaccine; Z88.8 Allergy status to other drugs, medicaments and biological substances
CPT/HCPCS: 36415; 71046; 80053; 84484; 85025; 93005; 96361; 96374; 96375; 99284; J1885; J2405; J2930; Q0169; J7030

== ENCOUNTER 2018-08-02 16:07 | Emergency (ER) | payer MEDICAID ==
[~2018-08-02] VITALS: Ht 160 cm; Wt 80.0 kg
[~2018-08-02 16:07] MED LIST changes: +PROM25SU32 RC
[2018-08-02 16:26] VITALS: BP 144/91
[2018-08-02] MEDS ORDERED: IV NORMAL SALINE 1,000ML 1,000 ML IV ONE (16:45)
[2018-08-02] MEDS ORDERED: methylPREDNISolone SOD SUCC PF 125 MG/2 ML VIAL. IV ONE (16:45)
[2018-08-02] MEDS ORDERED: PROMETHAZINE 25 MG SUPP.RECT. PR ONE (16:45)
--- NOTE | 2018-08-02 16:59 | RAD ---
CHEST AP ONLY History: Shortness of breath.. Comparison with 06/18/2018. Heart size is nonenlarged. No evidence of pneumothorax, pleural effusion or infiltrate. Bones appear intact. IMPRESSION: No evidence of consolidating infiltrate. Electronically signed by: Eliezer Heath MD (08/02/2018 4:56 PM) [facility]
[2018-08-02 17:00] LABS: BASO # 0.1 x10^3/uL (0.0-0.2); BASO % 1 % (0-3); EOS % 0 % (0-3); HEMATOCRIT 41.7 % (36.0-47.0); HEMOGLOBIN 13.9 g/dL (12.0-15.5); LYMPH # 0.4 x10^3/uL (1.0-4.8); LYMPH % 5 % (24-48); MEAN CORPUSCULAR HEMOGLOBIN 28 pg (25-35); MEAN CORPUSCULAR HGB CONC 33 g/dL (31-37); MEAN CORPUSCULAR VOLUME 85 fL (79-100); MONO # 0.2 x10^3/uL (0.0-1.1); MONO % 3 % (0-9); NEUT % 92 % (31-73); PLATELET COUNT 126 x10^3/uL (140-400); RED BLOOD COUNT 4.91 x10^6/uL (3.50-5.40); RED CELL DISTRIBUTION WIDTH 14.1 % (11.5-14.5); WHITE BLOOD COUNT 8.7 x10^3/uL (4.0-11.0)
--- NOTE | 2018-08-02 17:00 | PHYS DOC ---
Past History Past Medical History: Anxiety, Arthritis, Fibromyalgia, Migraines, Other Past Surgical History: Appendectomy, Cholecystectomy, Hysterectomy, Oophorectomy, Tonsillectomy, Other Alcohol Use: None Drug Use: None Adult General Chief Complaint Chief Complaint: MULTIPLE COMPLAINTS HPI HPI Patient is a 48-year-old female who is presenting with multiple complaints she thinks she is having a lupus flare she has lost 10 pounds in 2 months she has frequent diarrhea she has occasional floaters in her vision each of those symptoms diarrhea and the fluids has been going on for over a year she has chronic abdominal pain that is unchanged she says she has occasional palpitations when she is at rest she says she feels short of breath when she walks in addition she has increased back pain she also was noticing that she has increased hand pain bilaterally does now hard to open a door. Over the last couple of days. She says she thinks she needs some IV Solu-Medrol she went to see her ice cream dipper on Tuesday to give her a bag of IV fluids but she still feeling kind of weak overall. In essentially she does have a gaitan positive review of systems. Review of Systems Review of Systems Constitutional: Denies fever or chills [] Cardiovascular: No additional information not addressed in HPI [] ydipsia [] All other systems were reviewed and found to be within normal limits, except as documented in this note. Current Medications Current Medications Current Medications Medications (Trade) Dose Ordered Sig/Nick Start Time Stop Time Status Last Admin Dose Admin Methylprednisolone Sodium Succinate (SOLU-Medrol 125MG VIAL) 125 mg 1X ONCE 08/02/18 16:45 08/02/18 16:46 DC Promethazine HCl (Phenergan Supp) 25 mg 1X ONCE 08/02/18 16:45 08/02/18 16:46 DC Sodium Chloride 1,000 ml @ 1,000 mls/hr 1X ONCE 08/02/18 16:45 08/02/18 17:44 Allergies Allergies Allergies Coded Allergies Type Severity Reaction Last Updated Verified Penicillins Allergy Intermediate 03/10/18 Yes Sulfa (Sulfonamide Antibiotics) Allergy Intermediate 03/10/18 Yes hydrocodone Allergy Intermediate STOMACH UPSET/CONSTIPATION 03/11/18 Yes varicella virus vaccine live Allergy Intermediate Unknown 03/09/18 Yes pregabalin Allergy Unknown 06/18/18 Yes Physical Exam Physical Exam Constitutional: Well developed, well nourished, no acute distress, non-toxic appearance. [] HENT: Normocephalic, atraumatic, bilateral external ears normal, oropharynx moist, no oral exudates, nose normal. [] Eyes: PERRLA, EOMI, conjunctiva normal, no discharge. [] Neck: Normal range of motion, no tenderness, supple, no stridor. [] Cardiovascular:Heart rate regular rhythm, no murmur [] Lungs & Thorax: Bilateral breath sounds clear to auscultation [] Abdomen: Bowel sounds normal, soft, mild mid abdominal tenderness she says this is where normally is tenderness, no masses, no pulsatile masses. [] Skin: Warm, dry, no erythema, no rash. [] Back: Tenderness noted Extremities: Diffuse joint tenderness no focality Neurologic: Alert and oriented X 3, normal motor function, normal sensory function, no focal deficits noted. [] Psychologic: Affect normal, judgement normal, anxious Current Patient Data Vital Signs Vital Signs Date Time Temp Pulse Resp B/P (MAP) Pulse Ox O2 Delivery O2 Flow Rate FiO2 08/02/18 16:26 97.9 105 18 95 Room Air EKG EKG []Normal sinus rhythm rate of [address] flattening anteriorly no acute ischemia identified no STEMI Radiology/Procedures Radiology/Procedures cxr negative[] Course & Med Decision Making Course & Med Decision Making Pertinent Labs and Imaging studies reviewed. (See chart for details) []History of lupus on multiple medications presenting with essentially a gaitan positive review of systems joint pain abdominal pain diarrhea some palpitations floaters in her vision feeling weak body aches overall not feeling well. Plan for general emergency room workup chest x-ray EKG labs urinalysis IV Solu-Medrol IV fluids and antiemetics pt feeling better. care to [place], pending u/a plan for rx phenergan, norco (#6) only i told pt temporary use only. prednisone burst for three days. Dragon Disclaimer Dragon Disclaimer This electronic medical record was generated, in whole or in part, using a voice recognition dictation system. Departure Departure: Impression: Primary Impression: Systemic lupus erythematosus Referrals: GABI MORFIN MD (PCP) Scripts Hydrocodone Bit/Acetaminophen (NORCO 5-325 TABLET) 1 Each Tablet 1 TAB PO TID PRN for PAIN, #6 TAB Prov: MANOJ ELAINE MD 08/02/18 Prednisone (PREDNISONE) 20 Mg Tablet 2 TAB PO DAILY for pain for 3 Days, #6 TAB Prov: MANOJ ELAINE MD 08/02/18 Promethazine HCl (Phenergan) 25 Mg Supp.rect 25 MG RC BID PRN for CONSTIPATION, #10 SUPP.RECT Prov: MANOJ ELAINE MD 08/02/18 MANOJ ELAINE MD August 02, 2018 17:00
--- NOTE | 2018-08-02 17:07 | EKG ---
[address] [address] Test Date: 2018-08-02 Test Time: 16:53:21 Pat Name: ODALYS STARKEY Department: Room: Gender: F Product Design Manager: SABAS : 1970 Requested By: MANOJ ELAINE Order Number: [id number] Reading MD: Matthew Farnsworth Measurements Intervals [place] Rate: 95 P: 28 [place]: 138 QRS: -17 QRSD: 88 T: 69 QT: 368 QTc: 466 Interpretive Statements SINUS RHYTHM LEFTWARD AXIS QRS(T) CONTOUR ABNORMALITY CONSIDER ANTEROSEPTAL MYOCARDIAL DAMAGE T ABNORMALITY IN HIGH LATERAL LEADS ABNORMAL ECG Electronically Signed On 08-31-2018 13:07:52 CDT by Matthew Farnsworth
[2018-08-02] MEDS ORDERED: PROM25SU32 RC (17:17)
[2018-08-02] MEDS ORDERED: PRED20TA PO (17:17)
[2018-08-02] MEDS ORDERED: HYDR-3165 PO (17:17)
[2018-08-02 17:19] LABS: ALBUMIN 3.5 g/dL (3.4-5.0); GFR 59.2; POTASSIUM 3.7 mmol/L (3.5-5.1); TOTAL BILIRUBIN 0.3 mg/dL (0.2-1.0)
[2018-08-02 18:18] LABS: BACTERIA,URINE 0 /HPF (0-FEW); BILIRUBIN,URINE NEG (NEG); CLARITY,URINE CLEAR; COLOR,URINE YELLOW; GLUCOSE,URINE NEG (NEG); NITRITE,URINE NEG (NEG); RBC,URINE 0 /HPF (0-2); SQUAMOUS EPITHELIAL CELL,UR OCC /LPF; UROBILINOGEN,URINE 0.2 mg/dL (0.2 mg/dL); WBC,URINE 0 /HPF (0-4)
== END 2018-08-02 18:34 | disposition home or self-care (01) ==
LOC: ER 16:07
DX: M32.9 Systemic lupus erythematosus, unspecified (principal); F41.9 Anxiety disorder, unspecified; M19.90 Unspecified osteoarthritis, unspecified site; M79.7 Fibromyalgia; G43.909 Migraine, unspecified, not intractable, without status migrainosus; G89.29 Other chronic pain; R10.9 Unspecified abdominal pain; Z88.0 Allergy status to penicillin; Z88.2 Allergy status to sulfonamides; Z88.5 Allergy status to narcotic agent; Z88.8 Allergy status to other drugs, medicaments and biological substances
CPT/HCPCS: 36415; 71045; 80053; 81001; 83690; 84484; 85025; 93005; 96361; 96374; 99285; J2930; J7030

== ENCOUNTER 2018-08-24 11:28 | Emergency (ER) | payer MEDICAID ==
[~2018-08-24] VITALS: Ht 160 cm; Wt 80.0 kg
[~2018-08-24 11:28] MED LIST changes: +HYDR-3165 PO
--- NOTE | 2018-08-24 11:58 | PHYS DOC ---
Past History Past Medical History: Anxiety, Arthritis, Fibromyalgia, Migraines, Other Past Surgical History: Appendectomy, Cholecystectomy, Hysterectomy, Oophorectomy, Tonsillectomy, Other Alcohol Use: None Drug Use: None Adult General Chief Complaint Chief Complaint: NAUSEA/VOMITING/DIARRHEA HPI HPI 48-year-old female presents with vomiting and generalized abdominal pain. The patient has lupus. She has diffuse abdominal cramping on a regular basis. She presents today because she is unable to keep down any liquids or solids. Unable to take her medications today. She denies fever or chills. She is not feeling nauseous, she just vomits if she eats or drinks anything. She denies diarrhea or constipation. Review of Systems Review of Systems Constitutional: Denies fever or chills [] Eyes: Denies change in visual acuity, redness, or eye pain [] HENT: Denies nasal congestion or sore throat [] Respiratory: Denies cough or shortness of breath [] Cardiovascular: No additional information not addressed in HPI [] GI: Diffuse abdominal pain, nausea, vomiting. Denies bloody stools or diarrhea [] : Denies dysuria or hematuria [] Musculoskeletal: Denies back pain or joint pain [] Integument: Denies rash or skin lesions [] Neurologic: Denies headache, focal weakness or sensory changes [] Endocrine: Denies polyuria or polydipsia [] All other systems were reviewed and found to be within normal limits, except as documented in this note. Current Medications Current Medications Current Medications Medications (Trade) Dose Ordered Sig/Nick Start Time Stop Time Status Last Admin Dose Admin Ondansetron HCl (Zofran) 4 mg 1X ONCE 08/24/18 12:00 08/24/18 12:01 Sodium Chloride 1,000 ml @ 1,000 mls/hr 1X ONCE 08/24/18 12:00 08/24/18 12:59 Allergies Allergies Allergies Coded Allergies Type Severity Reaction Last Updated Verified Penicillins Allergy Intermediate 03/10/18 Yes Sulfa (Sulfonamide Antibiotics) Allergy Intermediate 03/10/18 Yes hydrocodone Allergy Intermediate STOMACH UPSET/CONSTIPATION 03/11/18 Yes varicella virus vaccine live Allergy Intermediate Unknown 03/09/18 Yes pregabalin Allergy Unknown 06/18/18 Yes Physical Exam Physical Exam Constitutional: Well developed, well nourished, no acute distress, non-toxic appearance. [] HENT: Normocephalic, atraumatic, bilateral external ears normal, oropharynx moist, no oral exudates, nose normal. [] Eyes: PERRLA, EOMI, conjunctiva normal, no discharge. [] Neck: Normal range of motion, no tenderness, supple, no stridor. [] Cardiovascular:Heart rate regular rhythm, no murmur [] Lungs & Thorax: Bilateral breath sounds clear to auscultation [] Abdomen: Bowel sounds normal, soft, diffuse tenderness, no masses, no pulsatile masses. [] Skin: Warm, dry, no erythema, no rash. [] Back: No tenderness, no CVA tenderness. [] Extremities: No tenderness, no cyanosis, no clubbing, ROM intact, no edema. [] Neurologic: Alert and oriented X 3, normal motor function, normal sensory function, no focal deficits noted. [] Psychologic: Affect normal, judgement normal, mood normal. [] EKG EKG [] Radiology/Procedures Radiology/Procedures [] Course & Med Decision Making Course & Med Decision Making Pertinent Labs and Imaging studies reviewed. (See chart for details) The patient's labs are unremarkable. I have given her 75 g of fentanyl for her discomfort. This appears to be a flareup of her lupus symptoms. She is on 10 mg of prednisone daily. I will give her a pulse dose for the next 4 days starting with 125 of Solu-Medrol in the ED and then 50 mg of prednisone for 3 more days. She is between primary care physicians because she changed insurance. [] Dragon Disclaimer Dragon Disclaimer This electronic medical record was generated, in whole or in part, using a voice recognition dictation system. Departure Departure: Impression: Primary Impression: Vomiting Additional Impression: Systemic lupus erythematosus Disposition: HOME, SELF-CARE Condition: STABLE Referrals: GABI MORFIN MD (PCP) Scripts Prednisone (PREDNISONE) 10 Mg Tablet 50 MG PO DAILY for lupus flare for 3 Days, #15 TAB Prov: СВЕТЛАНА BLOOM DO 08/24/18 Problem Qualifiers Primary Impression: Vomiting Vomiting type: unspecified Vomiting Intractability: non-intractable Nausea presence: without nausea Qualified Codes: R11.11 - Vomiting without nausea Additional Impression: Systemic lupus erythematosus Systemic lupus erythematosus type: unspecified Systemic lupus erythematosus organ involvement: unspecified Qualified Codes: M32.9 - Systemic lupus erythematosus, unspecified СВЕТЛАНА BLOOM DO August 24, 2018 11:58
[2018-08-24] MEDS ORDERED: ONDANSETRON PF 4 MG/2 ML VIAL. IV ONE (12:00)
[2018-08-24] MEDS ORDERED: IV NORMAL SALINE 1,000ML 1,000 ML IV ONE (12:00)
[2018-08-24 12:31] LABS: ALBUMIN 3.7 g/dL (3.4-5.0); ALBUMIN/GLOBULIN RATIO 1.1 (1.0-1.7); CALCIUM 9.2 mg/dL (8.5-10.1); CREATININE 0.9 mg/dL (0.6-1.0); GFR 66.8; POTASSIUM 3.2 mmol/L (3.5-5.1); TOTAL BILIRUBIN 0.8 mg/dL (0.2-1.0)
[2018-08-24 12:54] LABS: BASO % 1 % (0-3); EOS # 0.1 x10^3/uL (0.0-0.7); EOS % 1 % (0-3); HEMATOCRIT 41.8 % (36.0-47.0); LYMPH # 1.3 x10^3/uL (1.0-4.8); LYMPH % 19 % (24-48); MEAN CORPUSCULAR HEMOGLOBIN 28 pg (25-35); MEAN CORPUSCULAR HGB CONC 34 g/dL (31-37); MEAN CORPUSCULAR VOLUME 84 fL (79-100); MONO # 0.6 x10^3/uL (0.0-1.1); MONO % 9 % (0-9); NEUT # 4.7 x10^3uL (1.8-7.7); NEUT % 70 % (31-73); PLATELET COUNT 101 x10^3/uL (140-400); RED BLOOD COUNT 4.99 x10^6/uL (3.50-5.40); WHITE BLOOD COUNT 6.7 x10^3/uL (4.0-11.0)
[2018-08-24 13:47] LABS: BACTERIA,URINE FEW /HPF (0-FEW); BILIRUBIN,URINE NEG (NEG); CLARITY,URINE CLOUDY; COLOR,URINE AMBER; GLUCOSE,URINE NEG (NEG); NITRITE,URINE NEG (NEG); RBC,URINE RARE /HPF (0-2); SQUAMOUS EPITHELIAL CELL,UR MOD /LPF; UROBILINOGEN,URINE 1 mg/dL (0.2 mg/dL)
[2018-08-24] MEDS ORDERED: PRED-220 PO (14:01)
[2018-08-24 14:12] VITALS: BP 135/92
[2018-08-24] MEDS ORDERED: methylPREDNISolone SOD SUCC PF 125 MG/2 ML VIAL. IV ONE (14:15)
== END 2018-08-24 14:11 | disposition home or self-care (01) ==
LOC: ER 11:28
DX: M32.9 Systemic lupus erythematosus, unspecified (principal); R11.11 Vomiting without nausea; F41.9 Anxiety disorder, unspecified; M19.90 Unspecified osteoarthritis, unspecified site; M79.7 Fibromyalgia; G43.909 Migraine, unspecified, not intractable, without status migrainosus; Z90.49 Acquired absence of other specified parts of digestive tract; Z90.89 Acquired absence of other organs; Z90.710 Acquired absence of both cervix and uterus; Z90.722 Acquired absence of ovaries, bilateral; Z88.0 Allergy status to penicillin; Z88.2 Allergy status to sulfonamides; Z88.5 Allergy status to narcotic agent; Z88.7 Allergy status to serum and vaccine; Z88.8 Allergy status to other drugs, medicaments and biological substances
CPT/HCPCS: 36415; 80053; 81001; 85025; 87086; 96361; 96374; 96375; 99285; J2405; J2930; J3010; J7030

== ENCOUNTER 2019-12-12 08:19 | Emergency (ER) | payer MEDICARE, MEDICAID ==
[~2019-12-12] VITALS: Ht 157.5 cm; Wt 66.8 kg
[~2019-12-12 08:19] MED LIST changes: +OMEP40CA45 PO; -OMEP40CA5 PO
[2019-12-12 08:51] VITALS: BP 135/101
--- NOTE | 2019-12-12 08:59 | PHYS DOC ---
Past History Past Medical History: Anxiety, Arthritis, Fibromyalgia, Migraines, Other Past Surgical History: Appendectomy, Cholecystectomy, Hysterectomy, Oophorectomy, Tonsillectomy, Other Smoking: Non-smoker Alcohol Use: None Drug Use: None General Adult EDM: Chief Complaint: OTHER COMPLAINTS HPI: HPI: Katie Duke is a 49-year-old female with past medical history of lupus who presents with a recurrence of lupus symptoms. She complains of 3 days of of pain in "all of her joints", most notably her shoulders and hips, right-sided chest pain, nausea/vomiting every time she eats or drinks, decreased urination, and a migraine. This is similar to her last flareup approximately 3 months ago at which point she was given steroids in the emergency department and discharged. She was diagnosed with lupus approximately 4 to 5 years ago, and has been on a stable medication regiment since then. She states that she has been unable to take most of her medications due to her vomiting. Patient has not taken any medication for her pain at this point. Review of Systems: Review of Systems: Constitutional: Denies fever or chills Eyes: Denies redness or eye pain HENT: Denies nasal congestion or sore throat Respiratory: Denies cough or shortness of breath Cardiovascular: Denies palpitations; affirms chest pain GI: Denies abdominal pain; affirms nausea and vomiting : Denies dysuria or hematuria; affirms decreased production Musculoskeletal: Affirms back and joint pain Integument: Denies rash or skin lesions Neurologic: Denies focal weakness or sensory changes; affirms headache Complete systems were reviewed and found to be within normal limits, except as documented in this note. Heart Score: HEART Score for Chest Pain: HEART Score for Chest Pain Response (Comments) Value History Slighlty/Non-Suspicious 0 ECG Normal 0 Age >45 - < 65 1 Risk Factors No Risk Factors 0 Troponin < Normal Limit 0 Total 1 Risk Factors: Risk Factors: DM, Current or recent (<one month) smoker, HTN, HLP, family history of CAD, obesity. Risk Scores: Score 0 - 3: 2.5% MACE over next 6 weeks - Discharge Home Score 4 - 6: 20.3% MACE over next 6 weeks - Admit for Clinical Observation Score 7 - 10: 72.7% MACE over next 6 weeks - Early Invasive Strategies Allergies: Allergies: Allergies Coded Allergies Type Severity Reaction Last Updated Verified Penicillins Allergy Intermediate 03/10/18 Yes Sulfa (Sulfonamide Antibiotics) Allergy Intermediate 03/10/18 Yes hydrocodone Allergy Intermediate STOMACH UPSET/CONSTIPATION 03/11/18 Yes varicella virus vaccine live Allergy Intermediate Unknown 03/09/18 Yes pregabalin Allergy Unknown 06/18/18 Yes Physical Exam: PE: Constitutional: Well developed, well nourished, mild acute distress, non-toxic appearance HENT: Normocephalic, atraumatic Lungs & Thorax: No respiratory distress, equal chest rise and fall, clear to auscultation bilateral Abdomen: Soft, no tenderness Skin: Warm, dry, no erythema, no rash Back: Apprehension to motion, slow movement Extremities: Tenderness in all joints, ROM intact but slow, no edema Neurologic: Alert and oriented X 3, normal motor function, normal sensory function, no focal deficits noted Psychologic: Affect normal, judgment normal EKG: EKG: @0857 NSR at 90 bpm Left axis Incomplete right bundle grzegorz block No ST elevation or depression No T wave inversions QRS 96 ms QT 364 ms QTc 449 ms Radiology/Procedures: Radiology/Procedures: CHEST PA & LATERAL Clinical indications: chest pain and shoulder aches from lupus x 5 days COMPARISON: August 02, 2018. Findings: No acute lung infiltrate or pleural effusion or pulmonary edema or lung mass or pneumothorax is seen. The heart size, pulmonary vasculature, mediastinum and both rajeev are unremarkable. The osseous structures appear intact. Impression: No acute radiographic abnormality is seen. Electronically signed by: Ilan Fletcher MD (12/12/2019 9:20 AM) [id number] Course & Med Decision Making: Course & Med Decision Making Pertinent Labs and Imaging studies reviewed. (See chart for details) Patient presents with multiple joint pain consistent with lupus flare. Given the fact that her last flare about 3 months ago responded well to steroid treatment, she will be given dexamethasone and ketorolac for symptom control. Discussed nausea medications with patient and this was deferred at the time given her apprehension to Zofran and Reglan, and Phenergan being PO. Wells score 0, low risk for PE. EKG showed no abnormalities, troponin within normal limits, and chest x-ray without acute findings. HEART score 1. Patient reported continued pain despite steroid and ketorlac. Reports headache worse. Fioricet offered which patient declined as has been "ineffective" for her past episodes. Fentanyl therefore provided. Patient advised she would be unable to drive home. Patient aware and will get ride home. Prescription history was checked on [facility]. Patient stable for discharge with outpatient follow-up with PCP. Discussed findings and plan with patient, who acknowledges understanding and agreement. Rina Disclaimer: Rina Disclaimer: This electronic medical record was generated, in whole or in part, using a voice recognition dictation system. Departure Departure: Impression: Primary Impression: Systemic lupus erythematosus Qualified Codes: M32.9 - Systemic lupus erythematosus, unspecified Disposition: HOME/RESIDENCE PRIOR TO ADM Condition: STABLE Referrals: GABI MORFIN MD (PCP) Patient Instructions: Lupus Scripts Prednisone (PREDNISONE) 20 Mg Tablet 2 TAB PO DAILY for INFLAMMATION, #10 TAB Prov: KRANTHI SWANSON DO 12/12/19 Justification of Admission: Justification of Admission: Justification of Admission Dx: N/A KRANTHI SWANSON DO Dec 12, 2019 08:59
[2019-12-12] MEDS ORDERED: DEXAMETHASONE SOD PHOS 10 MG/ML VIAL. IV ONE (09:00)
[2019-12-12] MEDS ORDERED: IV NORMAL SALINE 1,000ML 1,000 ML IV ONE ×2 (09:00→10:15)
[2019-12-12] MEDS ORDERED: KETOROLAC 15 MG/ML VIAL. IVP ONE (09:00)
[2019-12-12 09:08] LABS: BASO # 0.1 x10^3/uL (0.0-0.2); BASO % 1 % (0-3); EOS # 0.2 x10^3/uL (0.0-0.7); EOS % 2 % (0-3); HEMATOCRIT 45.1 % (36.0-47.0); HEMOGLOBIN 15.1 g/dL (12.0-15.5); LYMPH # 3.9 x10^3/uL (1.0-4.8); LYMPH % 39 % (24-48); MEAN CORPUSCULAR HEMOGLOBIN 29 pg (25-35); MEAN CORPUSCULAR HGB CONC 34 g/dL (31-37); MEAN CORPUSCULAR VOLUME 86 fL (79-100); MONO # 0.6 x10^3/uL (0.0-1.1); MONO % 6 % (0-9); NEUT # 5.2 x10^3uL (1.8-7.7); NEUT % 52 % (31-73); PLATELET COUNT 202 x10^3/uL (140-400); RED BLOOD COUNT 5.25 x10^6/uL (3.50-5.40); RED CELL DISTRIBUTION WIDTH 13.2 % (11.5-14.5); WHITE BLOOD COUNT 10.1 x10^3/uL (4.0-11.0)
[2019-12-12 09:09] LABS: ANION GAP 12 (6-14); BLOOD UREA NITROGEN 7 mg/dL (7-20); BUN/CREATININE RATIO 8 (6-20); CALCIUM 9.1 mg/dL (8.5-10.1); CARBON DIOXIDE 24 mmol/L (21-32); CHLORIDE 106 mmol/L (98-107); CREATININE 0.9 mg/dL (0.6-1.0); GFR 66.5; GLUCOSE 95 mg/dL (70-99); POTASSIUM 3.5 mmol/L (3.5-5.1); SODIUM 142 mmol/L (136-145)
--- NOTE | 2019-12-12 09:23 | RAD ---
CHEST PA LATERAL Clinical indications: chest pain and shoulder aches from lupus x 5 days COMPARISON: August 02, 2018. Findings: No acute lung infiltrate or pleural effusion or pulmonary edema or lung mass or pneumothorax is seen. The heart size, pulmonary vasculature, mediastinum and both rajeev are unremarkable. The osseous structures appear intact. Impression: No acute radiographic abnormality is seen. Electronically signed by: Ilan Fletcher MD (12/12/2019 9:20 AM) [id number]
[2019-12-12 09:24] LABS: ALBUMIN 3.8 g/dL (3.4-5.0); ALBUMIN/GLOBULIN RATIO 1.2 (1.0-1.7); ALK PHOS 81 U/L (46-116); ALT (SGPT) 21 U/L (14-59); AST (SGOT) 21 U/L (15-37); LIPASE 237 U/L (73-393); MAGNESIUM 2.2 mg/dL (1.8-2.4); TOTAL BILIRUBIN 0.3 mg/dL (0.2-1.0); TOTAL PROTEIN 7.1 g/dL (6.4-8.2)
[2019-12-12] MEDS ORDERED: BUTALB/APAP/CAFEIN 50/325/40MG TABLET. ONE (10:12)
[2019-12-12] MEDS ORDERED: BUTALB/APAP/CAFEIN 50/325/40MG TABLET. PO ONE (10:15)
[2019-12-12] MEDS ORDERED: PRED20TA PO (10:37)
[2019-12-12 12:36] LABS: BACTERIA,URINE 0 /HPF (0-FEW); BILIRUBIN,URINE NEG (NEG); CLARITY,URINE CLEAR; COLOR,URINE YELLOW; GLUCOSE,URINE NEG (NEG); NITRITE,URINE NEG (NEG); RBC,URINE OCC /HPF (0-2); SQUAMOUS EPITHELIAL CELL,UR FEW /LPF; UROBILINOGEN,URINE 0.2 mg/dL (0.2 mg/dL); WBC,URINE OCC /HPF (0-4)
--- NOTE | 2019-12-13 07:31 | EKG ---
[address] [address] Test Date: 2019-12-12 Test Time: 08:57:31 Pat Name: ODALYS STARKEY Department: Room: Gender: F Block Trimmer: SAMMIE : 1970 Requested By: KRANTHI SWANSON Order Number: [id number] Reading MD: Measurements Intervals [place] Rate: 90 P: 40 MS: 134 QRS: -18 QRSD: 96 T: 52 QT: 364 QTc: 449 Interpretive Statements SINUS RHYTHM LEFTWARD AXIS INCOMPLETE RIGHT BUNDLE BRANCH BLOCK OTHERWISE NORMAL ECG RI6.02 No previous ECG available for comparison
== END 2019-12-12 11:40 | disposition home or self-care (01) ==
LOC: ER 08:19
DX: M32.9 Systemic lupus erythematosus, unspecified (principal); R11.2 Nausea with vomiting, unspecified; G43.909 Migraine, unspecified, not intractable, without status migrainosus; F41.9 Anxiety disorder, unspecified; M19.90 Unspecified osteoarthritis, unspecified site; M79.7 Fibromyalgia; Z90.49 Acquired absence of other specified parts of digestive tract; Z90.89 Acquired absence of other organs; Z90.710 Acquired absence of both cervix and uterus; Z90.722 Acquired absence of ovaries, bilateral; Z88.0 Allergy status to penicillin; Z88.5 Allergy status to narcotic agent; Z88.2 Allergy status to sulfonamides; Z88.7 Allergy status to serum and vaccine; Z88.8 Allergy status to other drugs, medicaments and biological substances
CPT/HCPCS: 36415; 71046; 80053; 81001; 82553; 83690; 83735; 84484; 85025; 93005; 96361; 96374; 96375; 99285; J1100; J1885; J3010; J7030